=== PATIENT | male | born 1955 | race Caucasian/White ===

== ENCOUNTER 2021-01-08 10:46 | Outpatient (CLI) | payer MEDICARE, MEDICAID ==
[2021-01-08 17:53] LABS: SARS-CoV-2 PCR by NAA Not Detected (NotDetected)
== END 2021-01-08 10:47 | disposition home or self-care (01) ==
LOC: LABBT 10:46
PROVIDERS: ATTEND Internal Medicine
DX: Z01.812 Encounter for preprocedural laboratory examination (principal); R19.5 Other fecal abnormalities; Z20.822 Contact with and (suspected) exposure to COVID-19
CPT/HCPCS: U0003; U0005; 87635

== ENCOUNTER 2021-01-13 06:18 | Day surgery (SDC) | payer MEDICARE, MEDICAID ==
[2021-01-12 09:23] VITALS: BMI 22.6
[2021-01-13] MEDS ORDERED: Ketamine 50 MG/ML (10ML VIAL) ONE (07:23)
[2021-01-13] MEDS ORDERED: Ondansetron ODT 4 MG TAB ONE (07:31)
[2021-01-13] MEDS ORDERED: Midazolam HCl 2 mg/2 ml Vial ONE (07:31)
[2021-01-13] MEDS ORDERED: PROPOFOL 200 MG/20 ML VIAL ONE (07:59)
== END 2021-01-13 09:45 | disposition home or self-care (01) ==
LOC: SDC 06:18
PROVIDERS: ATTEND Internal Medicine
PROC: 0DB78ZX Excision of Stomach, Pylorus, Via Natural or Artificial Opening Endoscopic, Diagnostic (ICD-10-PCS; principal; 2021-01-13)
PROC: 0DBE8ZX Excision of Large Intestine, Via Natural or Artificial Opening Endoscopic, Diagnostic (ICD-10-PCS; 2021-01-13)
DX: B82.0 Intestinal helminthiasis, unspecified (principal); K29.50 Unspecified chronic gastritis without bleeding; K25.9 Gastric ulcer, unspecified as acute or chronic, without hemorrhage or perforation; K64.8 Other hemorrhoids; R13.10 Dysphagia, unspecified; E78.5 Hyperlipidemia, unspecified; G80.8 Other cerebral palsy; F79 Unspecified intellectual disabilities; G40.909 Epilepsy, unspecified, not intractable, without status epilepticus; J30.2 Other seasonal allergic rhinitis; E03.9 Hypothyroidism, unspecified; F84.0 Autistic disorder; Z79.899 Other long term (current) drug therapy
CPT/HCPCS: 88305; J2250; J2704; Q0162

== ENCOUNTER 2021-11-30 10:13 | Outpatient (CLI) | payer MEDICARE, MEDICAID ==
[2021-12-01 00:06] LABS: SARS-CoV-2 PCR by NAA Not Detected (NotDetected)
== END 2021-11-30 10:14 | disposition home or self-care (01) ==
LOC: LABBT 10:13
PROVIDERS: ATTEND Internal Medicine
DX: K25.9 Gastric ulcer, unspecified as acute or chronic, without hemorrhage or perforation (principal); K64.8 Other hemorrhoids; B77.9 Ascariasis, unspecified; Z20.822 Contact with and (suspected) exposure to COVID-19
CPT/HCPCS: U0003; U0005

== ENCOUNTER 2021-12-03 05:52 | Day surgery (SDC) | payer MEDICARE, MEDICAID ==
[2021-11-30 16:11] VITALS: BMI 21.2
[2021-12-03] MEDS ORDERED: ePHEDrine 50 MG/ML VIAL ONE (08:01)
[2021-12-03] MEDS ORDERED: Lidocaine 1% PF 5 ML VIAL ONE (08:01)
== END 2021-12-03 09:18 | disposition home or self-care (01) ==
LOC: SDC 05:52
PROVIDERS: ATTEND Internal Medicine
PROC: 0DBM8ZX Excision of Descending Colon, Via Natural or Artificial Opening Endoscopic, Diagnostic (ICD-10-PCS; principal; 2021-12-03)
DX: D12.4 Benign neoplasm of descending colon (principal); K64.8 Other hemorrhoids; F84.0 Autistic disorder; F79 Unspecified intellectual disabilities; E78.5 Hyperlipidemia, unspecified; G80.8 Other cerebral palsy; E03.9 Hypothyroidism, unspecified; M85.80 Other specified disorders of bone density and structure, unspecified site; Z79.890 Hormone replacement therapy; Z79.899 Other long term (current) drug therapy
CPT/HCPCS: 88305; C1776; J3490